=== PATIENT | male | born 1980 | race Caucasian/White ===

== ENCOUNTER 2018-10-15 00:56 | Emergency (ER) | payer OTHER ==
[2018-10-15 01:02] VITALS: BP 142/89
[2018-10-15] MEDS ORDERED: Bupivacaine 0.5% 10 ML SDV INJECT ONE (01:14)
--- NOTE | 2018-10-15 02:23 | EDM.PDOC ---
ED HPI GENERAL MEDICAL PROBLEM - General Chief Complaint: General Stated Complaint: LACERATION Time Seen by Provider: 10/15/18 01:32 Source of Information: Reports: Patient History Limitations: Reports: No Limitations - History of Present Illness INITIAL COMMENTS - FREE TEXT/NARRATIVE: Patient was working at [employer]. Got left index finger caught in a clamp. Sustained injury to distal portion of finger. Denies other injuries. Left Finger-Index Pain Score (Numeric/FACES): 8 - Related Data Allergies Allergy/AdvReac Type Severity Reaction Status Date / Time No Known Drug Allergies Allergy Cannot Verified 11/13/16 10:04 Remember Home Meds: Home Meds ALPRAZolam [Alprazolam] 0.5 - 1 mg PO BID PRN 11/12/16 [History] PARoxetine HCl [Paxil] 40 mg PO DAILY 11/12/16 [History] hydroCHLOROthiazide [Hydrochlorothiazide] 50 mg PO DAILY 10/15/18 [History] Past Medical History Cardiovascular History: Reports: Hypertension Gastrointestinal History: Reports: None Musculoskeletal History: Reports: Fracture Neurological History: Reports: Concussion, Head Trauma, Seizure Psychiatric History: Reports: Anxiety, Depression Endocrine/Metabolic History: Reports: None Dermatologic History: Reports: None - Infectious Disease History Infectious Disease History: Reports: Chicken Pox - Past Surgical History HEENT Surgical History: Reports: Adenoidectomy, Tonsillectomy Neurological Surgical History: Reports: C-Spine Social & Family History - Tobacco Use Smoking Status *Q: Current Every Day Smoker Years of Tobacco use: 6 Packs/Tins Daily: 1 - Caffeine Use Caffeine Use: Reports: Soda - Recreational Drug Use Recreational Drug Use: No ED ROS GENERAL - Review of Systems Review Of Systems: ROS reveals no pertinent complaints other than HPI. ED EXAM, GENERAL - Physical Exam Exam: See Below Exam Limited By: No Limitations General Appearance: Alert, Anxious, Mild Distress Eye Exam: Bilateral Eye: EOMI, PERRL Throat/Mouth: Normal Voice, No Airway Compromise Head: Atraumatic, Normocephalic Neck: Supple Respiratory/Chest: No Respiratory Distress Extremities: Other (Left hand shows injury to distal index finger. Tendon function appears intact proximal to injury and in rest of fingers. 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 ) Neurological: Alert, Oriented, Normal Cognition, Normal Gait, No Motor/Sensory Deficits Psychiatric: Anxious Skin Exam: Warm, Dry ED GENERAL MEDICAL PROCEDURES - Additional/Other Procedure(s) Other (Free Text) Procedure(s): Digital block used for anesthesia of finger. 8cc 0.5% Marcaine was mixed with 2cc 1% Lidocaine. From that mixture a total of 5cc was injected around the base of the left index finger which gave patient significant pain relief. Course - Vital Signs Last Recorded V/S: Last Vital Signs Temp 36.1 C 10/15/18 00:57 Pulse 73 10/15/18 00:57 Resp 18 10/15/18 00:57 BP 142/89 H 10/15/18 00:57 Pulse Ox 100 10/15/18 00:57 - Orders/Labs/Meds Orders: Active Orders 24 hr Category Date Time Status Hand Comp Min 3V Lt [CR] Stat Exams 10/15/18 02:00 Taken Meds: Medications Discontinued Medications Generic Name Dose Route Start Last Admin Trade Name Freq PRN Reason Stop Dose Admin Bupivacaine HCl 10 ml 10/15/18 01:14 10/15/18 01:19 Sensorcaine-Mpf 0.5% INJECT 10/15/18 01:15 10 ml ONETIME ONE Administration Lidocaine HCl 5 ml 10/15/18 01:13 10/15/18 01:19 Xylocaine-Mpf 1% INJECT 10/15/18 01:14 5 ml ONETIME ONE Administration - Radiology Interpretation Free Text/Narrative:: Xray of finger shows small fracture distal phalanx - Re-Assessments/Exams Free Text/Narrative Re-Assessment/Exam: Call placed to [place]. Discussed patient with , hand specialist. He instructed us to apply Xeroform dressing/splint and have patient arrive at [place] [facility] at 8am for evaluation and repair. Antibiotics will be given at that time at [place]. Tetanus updated here in [place] prior to discharge. Patient much more comfortable after receiving digital block. Given outpatient pack of Tramadol for PRN pain use at time of discharge. Departure - Departure Time of Disposition: 03:00 Disposition: Home, Self-Care 01 Condition: Good Clinical Impression: Laceration of left index finger with damage to nail Qualifiers: Encounter type: initial encounter Foreign body presence: without foreign body Qualified Code(s): S61.311A - Laceration without foreign body of left index finger with damage to nail, initial encounter - Discharge Information *PRESCRIPTION DRUG MONITORING PROGRAM REVIEWED*: Not Applicable *COPY OF PRESCRIPTION DRUG MONITORING REPORT IN PATIENT TYRESE: Not Applicable Referrals: Marlene Hawthorne PA-C [Primary Care Provider] - Forms: ED Department Discharge Additional Instructions: OK to return to [facility]. [facility] will arrange for you to get a ride to [place]. You are to present to the [place] ER at 8am. Tell them that you were seen in [place] and we spoke to from Orthopedics about your finger injury. They are to tell that you have arrived and he will come and evaluate you and repair the damage to your finger. OK to drink fluids until procedure. You will have fill out the work restriction forms for [facility]. Follow up as instructs. OK to take the Tramadol for pain 1 tablet every 4-6 hours as needed. - My Orders Last 24 Hours: My Active Orders 10/15/18 02:00 Hand Comp Min 3V Lt [CR] Stat - Assessment/Plan Last 24 Hours: My Active Orders 10/15/18 02:00 Hand Comp Min 3V Lt [CR] Stat
[2018-10-15] MEDS ORDERED: Diphtheria,Pertussis(Acell),Tetanus Vaccine 0.5 ML SDV IM ONE (02:28)
[2018-10-15] MEDS ORDERED: Diphtheria,Pertussis(Acell),Tetanus Vaccine 0.5 ML SDV ONE (02:36)
[2018-10-15] MEDS ORDERED: ALPRAZolam 0.25 MG Tab PO ONE (02:49)
== END 2018-10-15 03:15 | disposition home or self-care (01) ==
LOC: LL.ED 00:56
DX: S62.631A Displaced fracture of distal phalanx of left index finger, initial encounter for closed fracture (principal); I10 Essential (primary) hypertension; F17.210 Nicotine dependence, cigarettes, uncomplicated; Z23 Encounter for immunization; Z79.899 Other long term (current) drug therapy; W23.0XXA Caught, crushed, jammed, or pinched between moving objects, initial encounter
CPT/HCPCS: 64450; 73130-LT; 90471; 90715; 99283-25; A9270-GY; J2001; J3490